=== PATIENT | female | born 1995 | race Caucasian/White ===

== ENCOUNTER 2018-02-14 14:08 | Emergency (ER) | payer OTHER ==
[~2018-02-14] VITALS: Ht 152.4 cm; Wt 83.0 kg
[2018-02-14 14:19] VITALS: BP 116/84
--- NOTE | 2018-02-14 14:20 | NUR ---
22/F BIB MOTHER C/O N/D & SUPRAPUBIC PRESSURE SHARP PAIN WITH VAGINAL BLEEDING X 3 DAYS 5 [facility] [place]/DAY. ADDS BURNING PAIN UPON VOIDING. REFERRED TO ER BY PMF FOR EVAL AND TREATMENT. HX--CHOLELITHIASIS. SKIN IS PINK/WARM/DRY; AAOX4 WITH EVEN AND STEADY GAIT; LUNGS CLEAR BL. PT DENIES ANY FEVER, CP, SOB, OR COUGH AT THIS TIME; PATIENT STATES PAIN OF 7/10 AT THIS TIME. PATIENT POSITIONED FOR COMFORT; HOB ELEVATED; BEDRAILS UP X2; BED DOWN. ER MD MADE AWARE OF PT STATUS.
--- NOTE | 2018-02-14 14:23 | NUR ---
URINE CUP SAMPLE HANDED TO PT
--- NOTE | 2018-02-14 14:45 | NUR ---
Patient being evaluated by DR NUNEZ at bedside.
[2018-02-14 15:07] VITALS: BP 116/84
--- NOTE | 2018-02-14 15:07 | NUR ---
Patient discharged with v/s stable. Written and verbal after care instructions given and explained. Patient verbalized understanding. Ambulatory with steady gait. All questions addressed prior to discharge. Advised to follow up with PMD.
[2018-02-14 17:24] LABS: APPEARANCE,URINE HAZY (CLEAR); COLOR,URINE YELLOW (YELLOW); PH,URINE 5.5 (5.0-9.0)
[2018-02-14 17:25] LABS: BILIRUBIN,URINE NEGATIVE (NEGATIVE); BLOOD, URINE 3+ (NEGATIVE); LEUKOCYTE ESTERASE ,URINE NEGATIVE (NEGATIVE); NITRITE, URINE NEGATIVE (NEGATIVE); UGLUCOSE NEGATIVE (NEGATIVE)
[2018-02-14 17:27] LABS: RBC,URINE >100 /HPF (0-5); WBC,URINE 16-25 (MOD) /HPF (0-5)
== END 2018-02-14 15:07 | disposition home or self-care (01) ==
LOC: MED 14:08
DX: N93.8 Other specified abnormal uterine and vaginal bleeding (principal)
CPT/HCPCS: 81001; 81025; 87086; 99284

== ENCOUNTER 2020-02-21 08:19 | Emergency (ER) | payer OTHER ==
[~2020-02-21] VITALS: Ht 152.4 cm; Wt 80.7 kg
[2020-02-21 08:21] VITALS: BP 138/91
--- NOTE | 2020-02-21 08:34 | NUR ---
PATIENT AMBULATED WITH STEADY GAIT TO BED 6
--- NOTE | 2020-02-21 08:45 | NUR ---
C/O LOWER ABDOMINAL PAIN,VAGINAL BLEEDING, N/V/D X 4 MONTHS. LMP 10/06/19. PT AOX4 ,AFIBRILE , AMBULATORY WITH STEADY GAIT, PINK PALPEBRAL CONJUNCTIVA , ANICTERIC SCLERA , SCE , FLAT ABDOMEN. TOOK NORETHINDRONE, MEDROXYPROGESTERONE. MED HX: DM, ANEMIA
--- NOTE | 2020-02-21 09:43 | NUR ---
DR MATA AT BEDSIDE EVALUATING PT.
--- NOTE | 2020-02-21 10:15 | NUR ---
PT COMFORTABLE IN BED SIDE RAILS UP AND LOCK AT LOWEST POSITION.
[2020-02-21 11:02] LABS: BASOPHILS # (AUTO) 0.1 K/uL (0.00-0.22); BASOPHILS % (AUTO) 0.6 % (0.0-2.0); EOSINOPHILS # (AUTO) 0.1 K/uL (0-0.4); EOSINOPHILS % (AUTO) 1.2 % (0.0-4.0); HEMATOCRIT 29.8 % (36-48); HEMOGLOBIN 9.8 g/dL (12.0-16.0); LYMPHOCYTES # (AUTO) 3.4 K/uL (2.5-16.5); LYMPHOCYTES % (AUTO) 38.9 % (20.5-51.1); MEAN CORPUSCULAR HEMOGLOBIN 27 pg (27-31); MEAN CORPUSCULAR HGB CONC 33 g/dL (33-37); MEAN CORPUSCULAR VOLUME 82.6 fL (80-94); MONOCYTES # (AUTO) 0.4 K/uL (0.8-1.0); MONOCYTES % (AUTO) 4.9 % (1.7-9.3); NEUTROPHILS # (AUTO) 4.7 K/uL (1.8-7.7); NEUTROPHILS % (AUTO) 54.4 % (42.2-75.2); PLATELET COUNT (AUTO) 299 K/uL (140-450); RED BLOOD CELL COUNT(AUTO) 3.61 MIL/uL (4.20-5.40); RED CELL DISTRIBUTION WIDTH 14.1 % (11.6-13.7); WHITE BLOOD COUNT (AUTO) 8.7 K/uL (4.8-10.8)
--- NOTE | 2020-02-21 11:32 | NUR ---
DR BUCHANAN AT BEDSIDE EVALUATING PT.
[2020-02-21 11:51] VITALS: BP 138/88
--- NOTE | 2020-02-21 11:52 | NUR ---
Patient discharged with v/s stable. Written and verbal after care instructions given and explained regarding uterine bleeding dysfunctional . Patient alert, oriented and verbalized understanding of instructions. Ambulatory with steady gait. All questions addressed prior to discharge. ID band removed. Patient advised to follow up with PMD. Rx of megace and ciprofloaxacin given. Patient educated on indication of medication including possible reaction and side effects. Opportunity to ask questions provided and answered.
== END 2020-02-21 11:52 | disposition home or self-care (01) ==
LOC: MED 08:19
DX: N93.8 Other specified abnormal uterine and vaginal bleeding (principal); N39.0 Urinary tract infection, site not specified; E11.9 Type 2 diabetes mellitus without complications; Z90.49 Acquired absence of other specified parts of digestive tract
CPT/HCPCS: 36415; 81002; 81025; 85025; 99283